=== PATIENT | female | born 1990 ===

== ENCOUNTER 2021-03-12 09:10 | Outpatient (CLI) | payer OTHER, SELFPAY | END 2021-03-12 10:50 | disposition home or self-care (01) | LOC: OB 03-13 06:59 | PROVIDERS: Referring Provider Family Medicine; Visit Provider Family Medicine | DX: O24.419 Gestational diabetes mellitus in pregnancy, unspecified control (principal); Z3A.33 33 weeks gestation of pregnancy | CPT/HCPCS: 59025; 59050; G0378; G0379 ==

== ENCOUNTER 2021-03-20 15:33 | Outpatient (CLI) | payer OTHER, SELFPAY | END 2021-03-20 17:00 | disposition home or self-care (01) | LOC: LABOR 16:08 → OB 03-21 09:00 | PROVIDERS: Referring Provider Family Medicine; Visit Provider Family Medicine | DX: O24.419 Gestational diabetes mellitus in pregnancy, unspecified control (principal); Z3A.34 34 weeks gestation of pregnancy | CPT/HCPCS: 59025; G0378; G0379 ==

== ENCOUNTER 2021-03-27 15:21 | Outpatient (CLI) | payer OTHER, SELFPAY | END 2021-03-27 17:00 | disposition home or self-care (01) | LOC: LABOR 17:46 → OB 04-17 07:47 | PROVIDERS: Referring Provider Student in an Organized Health Care Education/Training Program; Visit Provider Student in an Organized Health Care Education/Training Program | DX: O24.415 Gestational diabetes mellitus in pregnancy, controlled by oral hypoglycemic drugs (principal); Z3A.35 35 weeks gestation of pregnancy | CPT/HCPCS: 59025; G0378; G0379 ==

== ENCOUNTER → 2021-04-02 16:47 | Outpatient (ROUT) | payer OTHER, SELFPAY | PROVIDERS: Visit Provider Family Medicine | DX: Z34.80 Encounter for supervision of other normal pregnancy, unspecified trimester (principal) | CPT/HCPCS: 87081 ==

== ENCOUNTER 2021-04-06 16:14 | Outpatient (CLI) | payer OTHER, SELFPAY | END 2021-04-06 17:15 | disposition home or self-care (01) | LOC: OB 04-11 15:03 | PROVIDERS: Referring Provider Family Medicine; Visit Provider Family Medicine | DX: O24.415 Gestational diabetes mellitus in pregnancy, controlled by oral hypoglycemic drugs (principal); Z3A.36 36 weeks gestation of pregnancy | CPT/HCPCS: 59025; G0378; G0379 ==

== ENCOUNTER 2021-04-10 16:24 | Outpatient (CLI) | payer OTHER, SELFPAY ==
--- NOTE | 2021-04-10 16:30 | DI.US.S_ITS ---
PROCEDURE: US OB >= 14 WEEKS FETUS INDICATIONS: for growth OUTSIDE/PRIOR DATING DATA: Last menstrual period (LMP): Unknown. Patient reported estimated date of delivery (MEENU): 04/28/2021. First dating scan (date and location): 04/10/2021. Estimated date of delivery (MEENU) from first dating scan: 05/04/2021. TECHNIQUE: Real-time scanning was performed of the fetus, with image documentation and biometric measurements. COMPARISON: None. FINDINGS: General: A single living intrauterine gestation is present. Presentation: Cephalic. Placenta: Placental position is posterior, without definite previa with the cervix not well visualized. Amniotic fluid index: 16.7 cm, normal range is 5-24 cm. heart rate: 130 beats per minute. Maternal cervical canal: Approximately 3.4 cm long but not well seen. Normal lower limit is 2.5 cm. biometrics: Biparietal diameter: 9 cm, 36 weeks 4 days. Head circumference: 32.7 cm, 37 weeks 1 day Abdominal circumference: 32.7 cm, 36 weeks 4 days Femur length: 7 cm, 36 weeks 1 day Estimated gestational age from initial scan: Unknown. Composite gestational age from present scan: 36 weeks 4 days Estimated weight and percentile: 2959 g Measurement variability for biometric dating: +/- 7 days from 14 weeks to 15 weeks 6 days gestation, +/- 10 days from 16 weeks to 21 weeks 6 days gestation, +/- 2 weeks from 22 weeks to 27 weeks 6 days gestation, +/- 3 weeks for 28 weeks gestation or later. weight reference: 4500 g or EFW >90/95% is considered macrosomia or large for gestational age. EFW <10% is small for gestational age. EFW 5% or less is considered intra-uterine growth restriction. IMPRESSION: 1. Single living intrauterine with composite gestational age of 36 weeks 4 days. Evaluation of growth percentile limited due to absence of a documented LMP or prior dating scan at the time of dictation. Recommend comparison with prior outside studies if available. 2. Cervix not well visualized. Dictated by: Dirk Emmanuel M.D. on 04/10/2021 at 17:44 Approved by: Dirk Emmanuel M.D. on 04/10/2021 at 17:54
[2021-04-10 17:11] LABS: Add Manual Diff / Slide Review NO; Basophils Absolute Auto 0 /uL (0-100); Basophils Percent Auto 0.3 % (0-2); Eosinophils Absolute Auto 200 /uL (0-450); Eosinophils Percent Auto 2.3 % (2-4); Hematocrit 36.5 % (36-46); Hemoglobin 12.5 g/dL (12.0-16.0); Lymphocytes Absolute Auto 1900 /uL (1100-4500); Lymphocytes Percent Auto 19.8 % (25-40); Mean Corpuscular HGB Conc 34.3 % (30-36); Mean Corpuscular Hemoglobin 30.1 PG (26-34); Mean Corpuscular Volume 87.8 fL (80-100); Monocytes Absolute Auto 500 /uL (0-900); Monocytes Percent Auto 5.7 % (3-14); Neutrophils Absolute Auto 6800 /uL (1500-7000); Neutrophils Percent Auto 71.9 % (50-75); Platelet Count 208 X10^3/uL (150-400); Red Blood Cell Count 4.16 X10^6/uL (4.0-5.2); Red Cell Distribution Width 14.6 % (11.6-14.8); White Blood Cell Count 9.4 X10^3/uL (4.5-11.0)
[2021-04-10 17:30] LABS: Aspartate Aminotransferase 21 IU/L (14-36); Blood Urea Nitrogen 11 mg/dL (7-17); Estimated Glomerular Filt Rate > 60.0 mL/min (>60); Uric Acid 6.9 mg/dL (2.5-6.2)
== END 2021-04-10 18:00 | disposition home or self-care (01) ==
LOC: LABOR 16:33 → OB 04-11 15:08
PROVIDERS: Referring Provider Family Medicine; Visit Provider Family Medicine
DX: O13.3 Gestational [pregnancy-induced] hypertension without significant proteinuria, third trimester (principal); O24.419 Gestational diabetes mellitus in pregnancy, unspecified control; Z3A.37 37 weeks gestation of pregnancy
CPT/HCPCS: 36415; 59025; 59050; 76811; 84450; 84550; 85025; G0378; G0379

== ENCOUNTER 2021-04-13 16:08 | Outpatient (CLI) | payer OTHER, SELFPAY | END 2021-04-13 17:18 | disposition home or self-care (01) | LOC: LABOR 16:26 → OB 04-17 07:45 | PROVIDERS: Referring Provider Family Medicine; Visit Provider Family Medicine | DX: O24.415 Gestational diabetes mellitus in pregnancy, controlled by oral hypoglycemic drugs (principal); Z3A.37 37 weeks gestation of pregnancy | CPT/HCPCS: 59025; G0378; G0379 ==

== ENCOUNTER 2021-04-14 11:18 | Outpatient (CLI) | payer OTHER, SELFPAY ==
[2021-04-14 11:57] LABS: Creatinine Urine Random 40.9 mg/dL; Protein (Total) Urine Random 32 mg/dL (0-12); Protein Creatinine Ratio Urine 0.78 GRAM/24H
[2021-04-14 12:27] LABS: Add Manual Diff / Slide Review NO; Basophils Absolute Auto 0 /uL (0-100); Basophils Percent Auto 0.3 % (0-2); Eosinophils Absolute Auto 200 /uL (0-450); Hematocrit 37.1 % (36-46); Hemoglobin 12.7 g/dL (12.0-16.0); Lymphocytes Absolute Auto 2100 /uL (1100-4500); Lymphocytes Percent Auto 21.4 % (25-40); Mean Corpuscular HGB Conc 34.1 % (30-36); Mean Corpuscular Hemoglobin 29.8 PG (26-34); Mean Corpuscular Volume 87.3 fL (80-100); Monocytes Absolute Auto 700 /uL (0-900); Monocytes Percent Auto 7.4 % (3-14); Neutrophils Absolute Auto 6600 /uL (1500-7000); Neutrophils Percent Auto 68.9 % (50-75); Platelet Count 214 X10^3/uL (150-400); Red Blood Cell Count 4.25 X10^6/uL (4.0-5.2); Red Cell Distribution Width 14.2 % (11.6-14.8); White Blood Cell Count 9.6 X10^3/uL (4.5-11.0)
[2021-04-14 12:48] LABS: Aspartate Aminotransferase 21 IU/L (14-36); Blood Urea Nitrogen 8 mg/dL (7-17); Estimated Glomerular Filt Rate > 60.0 mL/min (>60); Uric Acid 6.5 mg/dL (2.5-6.2)
== END 2021-04-14 13:40 | disposition home or self-care (01) ==
LOC: LABOR 11:22 → OB 04-17 07:44
PROVIDERS: Referring Provider Family Medicine; Visit Provider Family Medicine
DX: O24.415 Gestational diabetes mellitus in pregnancy, controlled by oral hypoglycemic drugs (principal); Z3A.38 38 weeks gestation of pregnancy
CPT/HCPCS: 36415; 59025; 82570; 84156; 84450; 84550; 85025; G0378; G0379

== ENCOUNTER → 2021-04-17 13:50 | Outpatient (ROUT) | payer OTHER, SELFPAY ==
[2021-04-17 15:09] LABS: Creatinine Urine Random 140.9 mg/dL
[2021-04-17 15:29] LABS: Collection Time Urine 24 Hours; Creatinine 24 Hour Urine 1761 mg/day (800-1800); Protein (Total) Urine Random < 5 mg/dL (0-12); Total Protein 24 Hour Urine 62 mg/day (42-225); Total Volume Urine 1250 mL
== END ==
PROVIDERS: PCP Family Medicine; Visit Provider Family Medicine
DX: O16.3 Unspecified maternal hypertension, third trimester (principal)
CPT/HCPCS: 82570; 84156

== ENCOUNTER 2021-04-18 19:06 | Outpatient (CLI) | payer OTHER, SELFPAY | END 2021-04-18 20:20 | disposition home or self-care (01) | LOC: LABOR 19:21 → OB 04-19 08:30 | PROVIDERS: PCP Family Medicine; Referring Provider Family Medicine; Visit Provider Family Medicine | DX: O47.1 False labor at or after 37 completed weeks of gestation (principal); O24.419 Gestational diabetes mellitus in pregnancy, unspecified control; Z3A.38 38 weeks gestation of pregnancy | CPT/HCPCS: 59025; G0378; G0379 ==

== ENCOUNTER 2021-04-19 06:42 | Inpatient (IN) | payer OTHER, SELFPAY ==
[2021-04-19] MEDS: LACTATED RINGERS 1,000 ML 100 ML IV ×2 (08:15→14:15)
[2021-04-19] MEDS: OXYTOCIN PREMIX 30 UNIT/500 ML PLAST..BAG IV (08:15)
[2021-04-19 08:28] LABS: Add Manual Diff / Slide Review NO; Basophils Absolute Auto 0 /uL (0-100); Basophils Percent Auto 0.3 % (0-2); Eosinophils Absolute Auto 200 /uL (0-450); Eosinophils Percent Auto 2.5 % (2-4); Hematocrit 35.2 % (36-46); Lymphocytes Absolute Auto 2000 /uL (1100-4500); Lymphocytes Percent Auto 25.4 % (25-40); Mean Corpuscular Hemoglobin 29.8 PG (26-34); Mean Corpuscular Volume 87.9 fL (80-100); Monocytes Absolute Auto 400 /uL (0-900); Monocytes Percent Auto 5.2 % (3-14); Neutrophils Absolute Auto 5400 /uL (1500-7000); Neutrophils Percent Auto 66.6 % (50-75); Platelet Count 208 X10^3/uL (150-400); Red Blood Cell Count 4.01 X10^6/uL (4.0-5.2); Red Cell Distribution Width 14.5 % (11.6-14.8)
[2021-04-19 09:25] LABS: COVID19 - ADMIT (NP swab/PCR) Negative (Negative)
--- NOTE | 2021-04-19 13:14 | PM.OBPNLAB ---
Date/Time Date Patient Seen: 04/19/21 Time Patient Seen: 13:14 Pain Control Comments: Patient with sudden increase in uterine contractions strength. Patient requesting epidural. Initial epidural was not effective only numbness in her left lower leg and 2nd epidural placed and patient now getting some comfort. Pelvic Exam Dilation (cm): 5 Effacement (%): 100 station: -1 Amniotic membrane status: Bulging Contractions Date/Time contractions began: Irregular uterine contractions started on 04/18/2021 Contractions on admission: regular Pitocin rate (mU/min): 9 Contraction frequency (min): 2 Contraction duration (min): 60 Contraction pattern: Regular Contraction intensity: Strong/Firm Status status: Category l Heart Rate Baseline: 120 Monitor Accelerations: Present Monitor Decelerations: Absent Monitor Variability: Moderate Assessment and Plan Assessment: active labor Plan: continuous present management Comments: Once patient comfortable we will do artificial rupture membranes GBS negative Continue with epidural Continue with external tocometer heart monitor Rh positive Gestational diabetes Continue with blood sugar check recent blood sugar 72. Patient will suck on minutes. Will recheck in 1 hour
--- NOTE | 2021-04-19 14:59 | P.PCNOB_ITS ---
Labor & Delivery Delivery date: 04/19/21 Intrapartal Events: None Cervical ripening method: none Induction method: per pitocin protocol Delivery augmentation: rupture of membranes Delivery monitor: external FHT and external uterine Route of delivery: L&D Laceration Description: None Estimated blood loss (mL): 250 Anesthesia Type: Epidural Complications: none Narrative: Identifying data: 30-year-old at 38 and 5 7th weeks estimated gestational age based on a 1st trimester ultrasound which was inconclusive with LMP which gave a EDC of 04/17/2021. was complicated by anticoagulant antibodies. Mom was referred to [facility] and they tested the father who was negative and there were no further problems. No further follow-up recommended. Mom did developed gestational diabetes which she had with her last and was on metformin with well-controlled diabetes. Stage I lasted 2 hours and 8 minute Mom was brought to Labor and delivery for induction. She originally came in on 04/18/2021 for cervical ripening but she was having painful irregular uterine contractions that were [address] the Cervidil. Patient was sent home and came back this morning had contractions intermittently through the night and was founded have cervical change when she presented. She was 2-3 cm and 80% effaced and-1 station on presentation to Labor and delivery this morning. Pitocin was started. A maximum of 12 units. Patient received an epidural at noon which was ineffective and had significant painful uterine contractions and then a 2nd epidural placed at 1:00 p.m.. This was a very effective epidural. Artificial rupture membranes was done at 1:20 p.m. and resulted in large amounts of clear fluid. There was some blood. This was 1 hour and 8 minutes prior to delivery. Mom was noted to have anterior lip at approximately 145 and found to be complete at 208. In and out catheter obtain 250 cc of concentrated urine at 2:05 p.m. External tocometer heart monitor were used throughout stage I although this there was difficulty given patient's size. Lucy was used and really we were able to follow the baby well throughout this stage with the baseline heart rate in the 120s to 130s with accelerations and moderate variability but periods of being unable to monitor the baby. Contractions were every 2 minutes apart. After the epidural was placed at 1:00 p.m. the Pitocin was turned down to 6 units and continued throughout the labor at this rate. Mom was GBS negative. Blood sugar this morning was 126 repeat 4 hours later was 72 and 1 hour later was 86. Stage II lasted 20 minutes Normal spontaneous vaginal delivery of a viable male with weight pending. Apgars 8 at 1 minute 9 at 5 minutes. Baby was born in direct occiput posterior presentation with a nuchal cord x1 which was reduced on the perineum. Mom had effective pushing although given her efforts and size of the pelvis there was some concern for shoulder dystocia. Respiratory therapy was contacted and a 2nd and nurse for assist should we developed shoulder dystocia baby was expected to be approximately 8 lb or less and her last baby was 9 lb 7 oz. mom continued to push effectively and as soon as baby went under the pubic symphysis it was . Head was delivered. Nuchal cord was reduced and baby termed to maternal left and anterior-posterior shoulders were delivered easily and then remainder body very quickly. Baby was placed on mom's chest and was vigorous at the time of delivery. Intact perineum Stage III lasted 7 minutes Placenta was delivered at 2:35 p.m.. This was an intact moderately calcified placenta with a three-vessel cord and near central cord insertion. There was a total of 250 cc of blood loss. The uterus was firm at delivery the remainder Pitocin was running. Perineum cervix intact. No repair done sponge and needle count accurate At the time this dictation both mom and baby are doing well Plan for aftercare: Routine care
--- NOTE | 2021-04-19 15:20 | P.HP_ITS ---
History of Present Illness History of Present Illness Date Patient Seen: 04/19/21 Time Patient Seen: 08:30 Date of Onset of Symptoms: 04/18/21 Chief complaint: INDUCTION Narrative: Patient presents to Labor and delivery for scheduled induction of labor. Patient arrived last night for cervical ripening but was found be romeo too much that we were not able to place a Cervidil. Patient had intermittent contractions at home. She came in this morning and was found to have made cervical change being 2-3 cm dilated and 80% effaced and-1 station. Intact bag of water. She was having some swelling. No headaches. No change in discharge. No back labor. was complicated by gestational diabetes and therefore the reason for the induction. Patient had some marginal blood pressure readings 130s over mid to upper 80s in was found have a uric acid on initial screening 10 days ago of 6.9. This came down to 6.5. A spot urine protein creatinine ratio was elevated at 0.7 in the hospital but a 24 hour urine protein was entirely normal and patient's blood pressure was normal as well. Induction was done at 39 weeks due to gestational diabetes and early preeclampsia. Past medical history: Unremarkable Medications: Metformin 1000 mg twice daily Allergies hydrocodone. Patient has tolerated oxycodone however Past surgical history: Unremarkable Holter to behavior: Patient does not use alcohol or cigarettes or drugs Social history patient is and lives with her and 2 children in the [facility]. Family history is unremarkable for complications or bleeding disorders Past OB history 03/18/2008 at 42 weeks gestation after 5 hours of labor patient had a normal spontaneous vaginal delivery of a viable male weighing 8 lb 6 oz name Chirag July 22, 2017 at 39 weeks gestation normal spontaneous vaginal delivery occurred after 6 hours of labor with epidural at [facility] of a viable male weighing 9 lb 7 oz. was complicated by gestational diabetes and patient was treated with metformin and baby was breech and flipped over techs. care was begun early on at approximately 8 weeks gestation. Patient had 12 visits. Patient gained a total 40 lb. Blood pressures were 114-132/68-82. Serology: AB positive, rubella immune, positive quell antibodies with being tested negative and workup at [facility] not recommending any further treatments instead was negative. Normal 20 week ultrasound, level 2. History of immunity to varicella. Syphilis hepatitis-B hepatitis-C chlamydia gonorrhea were all negative. H&H normal Pap smear normal HIV negative. 1 hour glucose tolerance test was 158. Patient began checking her sugars. She was gradually increased to a 1000 mg twice daily and metformin. She did well. Patient received Tdap 01/11/2021. Patient received flu shot 11-. Cell free DNA negative Review of systems: Negative for any leaking fluid, negative for any foul- smelling discharge, negative for any bloody discharge, baby has been active. Negative for upper abdominal pain. Positive for lower extremity edema at the end of the day. Positive for mild headaches. Negative for any reflux. Patient has been having contractions Meds Home Medications and Allergies Home Medications Medication Instructions Recorded Confirmed Type Daily 1 tab PO DAILY 03/12/21 04/19/21 History metformin 500 mg PO BID 03/12/21 04/19/21 History Allergies Allergy/AdvReac Type Severity Reaction Status Date / Time acetaminophen [From [facility]] Allergy Mild Swelling Verified 04/19/21 09:42 of Lip/Tongue/Throat hydrocodone [From [facility]] Allergy Mild Swelling Verified 04/19/21 09:42 of Lip/Tongue/Throat Review of Systems Review of Systems Narrative: Negative other than HPI Exam Narrative Exam Narrative: Afebrile vital signs are stable HEENT is unremarkable Neck is supple Chest: Clear to auscultation without wheezes rhonchi or crackles Cor: Regular rate and rhythm any murmur Abdomen positive bowel sounds, soft, obese, gravid, vertex presentation, estimated weight 8 lb Extremities: Unremarkable Cervical exam 2-3 cm, 80% effaced, -1 station, bulging bag of water Extremities trace pitting edema Objective Labs Result Diagrams: 04/19/21 07:35 Labs: Laboratory Results - last 24 hr 04/19/21 04/19/21 04/19/21 07:35 07:35 07:35 WBC 8.0 RBC 4.01 Hgb 12.0 Hct 35.2 L MCV 87.9 MCH 29.8 MCHC 34.0 RDW 14.5 Plt Count 208 Neut % (Auto) 66.6 Lymph % (Auto) 25.4 Allen % (Auto) 5.2 Eos % (Auto) 2.5 Baso % (Auto) 0.3 Neut # (Auto) 5400 Lymph # (Auto) 2000 Allen # (Auto) 400 Eos # (Auto) 200 Baso # (Auto) 0 SARS-CoV-2 (PCR) Negative Blood Type AB Positive Antibody Screen Negative Assessment & Plan Assessment & Plan narrative: 30-year-old at estimated 39 weeks gestation with gestational diabetes and early preeclampsia Plan: Patient is early in labor. We will augment with Pitocin. We will do a rum once her contraction pattern picks up. GBS negative Rh positive COVID negative Will do blood sugars every 4 hours and every hour once active Will continue metformin to help with milk supply is patient has had difficulty with her past pregnancies with milk supply Expectant management COVID-19 COVID-19 status: Negative
[2021-04-19] MEDS: DERMOPLAST SPRAY 20% 60 ML 1 SPRAY TOP (17:03)
[2021-04-19] MEDS: LANOLIN OINT 7 GM 1 APPLIC TOP (17:04)
[2021-04-19] MEDS: IBUPROFEN 600 MG TABLET PO (21:59)
[2021-04-20] MEDS: IBUPROFEN 600 MG TABLET PO ×2 (05:14→13:43)
[2021-04-20 07:04] LABS: Hematocrit 34.8 % (36-46); Hemoglobin 11.9 g/dL (12.0-16.0)
[2021-04-20] MEDS: DOCUSATE 100 MG CAPSULE PO (09:22)
[2021-04-20] MEDS: PRENATAL VIT,CALC/IRON/FOLIC 1 TABLET 1 TAB PO (09:22)
--- NOTE | 2021-04-20 13:26 | PM.DS.1 ---
History of Present Illness History of Present Illness Date Patient Seen: 04/20/21 Time Patient Seen: 08:10 Chief complaint: INDUCTION Narrative: Patient was brought in for induction for gestational diabetes and term intrauterine . Please see delivery note. After delivery she was sent to recovery in place back on her metformin. She had no other significant changes or complaints. She was eating well. Minimal bleeding. Minimal pain. Requesting to go home. He would like to talk to the breast-feeding consult which was done. She had no other significant concerns or complaints. Was discharged to home with follow-up at 6 weeks. Usual indication and discussion on concerning signs and symptoms when to call she understands questions answered Discharge Providers Provider Date of admission: 04/19/21 06:42 Discharge Date: 04/20/21 Primary care physician: Dr. Shruti Francisco Consults: 04/20/21 14:55 Consult to Real Estate Agent/Broker Routine Comment: Discharge provider: Wyatt Chen MD Summary Hospital Course Discharge Diagnosis: Term intrauterine gestational diabetes on metformin Delivered Hospital Course: Please see history and physical Exam Narrative Exam Narrative: Alert obese female in no acute distress. Abdomen soft positive bowel sounds nontender uterine firm Objective Labs Result Diagrams: 04/20/21 06:46 Labs: Laboratory Results - last 24 hr 04/20/21 06:46 Hgb 11.9 L Hct 34.8 L Discharge Assessment & Plan Assessment and Plan Assessment: Term female delivered no complications Plan of Treatment: Discharge to home Discharge Plan Discharge Plan Patient Disposition: Home Discharge orders & Medications Prescriptions: Continued metformin 500 mg 500 mg PO BID RF: 0 Daily 1 tablet 1 tab PO DAILY RF: 0 Follow up/Referrals: Khanh Grove MD [Primary Care Provider] - Shruti Francisco MD [Physician] - 6 Weeks Discharge Health Status Multidrug resistant organism: No MDRO Diet/Activity/Treatments Diet: Diet as Tolerated Activity: as tolerated. Skin/Wound/Dressing Care Report to your healthcare provider any signs of infection, such as:: chills, fever, increased pain and unusual drainage Discharge Data Primary Care Provider: Khanh Grove
[2021-04-20 15:29] VITALS: BP 114/74
== END 2021-04-20 18:03 | disposition home or self-care (01) | DRG 807 ==
PROVIDERS: Admitting Provider Family Medicine; PCP Family Medicine; Referring Provider Family Medicine; Visit Provider Family Medicine
DX: O24.425 Gestational diabetes mellitus in childbirth, controlled by oral hypoglycemic drugs (principal); Z37.0 Single live birth; O14.94 Unspecified pre-eclampsia, complicating childbirth; Z3A.39 39 weeks gestation of pregnancy; O69.81X0 Labor and delivery complicated by cord around neck, without compression, not applicable or unspecified; Z20.822 Contact with and (suspected) exposure to COVID-19
CPT/HCPCS: 01967; 36415; 59050; 85014; 85018; 85025; 86850; 86870; 86900; 86901; 87635; C9803; G0379; J2590